=== PATIENT | female | born 1970 | race Caucasian/White ===

== ENCOUNTER 2018-10-22 15:57 | Emergency (ER) | payer MEDICARE, OTHER ==
[~2018-10-22] VITALS: Ht 170.2 cm; Wt 108.9 kg
[2018-10-22 16:18] VITALS: BP 154/111
[2018-10-22] MEDS: HYDROcodone/APAP 5/325MG 1 TAB TABLET PO ONE (16:44)
--- NOTE | 2018-10-22 17:25 | PHYS DOC ---
Past Medical History Past Medical History: Diabetes-Type II, Hypertension Past Surgical History: Cholecystectomy, Alcohol Use: None Drug Use: None Adult General Chief Complaint Chief Complaint: KNEE INJURY HPI HPI Patient is a 48 year old female who presents to the ER with complaints of R knee pain. She states that 3 weeks ago she twisted her knee when she fell down some steps. She was seen at [facility] in the ER and told her x-ray was normal. She was supposed to follow up with her PCP but has been unable to schedule an appointment because she owes them money. Pt reports continued swelling and pain of the R knee. Pt states that the pain increases when she bears weight or moves the knee. She feels like her knee is going to give out. Pt states she is out of the pain medication that was prescribed. Review of Systems Review of Systems Constitutional: Denies fever or chills [] Musculoskeletal: Denies back pain, see HPI Integument: Denies rash or skin lesions [] Neurologic: Denies headache, focal weakness or sensory changes [] All other systems were reviewed and found to be within normal limits, except as documented in this note. Current Medications Current Medications Current Medications Medications (Trade) Dose Ordered Sig/Elida Start Time Stop Time Status Last Admin Dose Admin Acetaminophen/ Hydrocodone Bitart (Lortab 5/325) 1 tab 1X ONCE 10/22/18 16:45 10/22/18 16:46 DC 10/22/18 16:44 1 TAB Allergies Allergies Allergies Coded Allergies Type Severity Reaction Last Updated Verified No Known Drug Allergies 10/22/18 No Physical Exam Physical Exam Constitutional: Well developed, well nourished, no acute distress, non-toxic appearance, obese. [] HENT: Normocephalic, atraumatic, bilateral external ears normal, nose normal. [ ] Eyes: conjunctiva normal, no discharge. [] Neck: Normal range of motion Extremities: No cyanosis, no clubbing; R medial knee tenderness to palpation, 1 + edema of R anterior knee, no deformity, negative anterior/posterior drawer testing of R knee, limited ROM of R knee due to pain intolerance Neurologic: Alert and oriented X 3, normal motor function, normal sensory function, no focal deficits noted. [] Psychologic: Affect normal, judgement normal, mood normal. [] Current Patient Data Vital Signs Vital Signs Date Time Temp Pulse Resp B/P (MAP) Pulse Ox O2 Delivery O2 Flow Rate FiO2 10/22/18 16:18 97.4 100 16 154/111 (125) 96 Room Air 97.4 EKG EKG [] Radiology/Procedures Radiology/Procedures PROCEDURE: KNEE RIGHT 3V Indication:ER PATIENT. FALL X3 WEKKS. RIGHT KNEE PAIN. DIFFICULTY FLEXING KNEE. NO PRIORS TECHNIQUE: 3 views of the right knee COMPARISON:None FINDINGS/ impression: No acute fracture or dislocation. Moderate medial joint compartment arthritis. Mild lateral and patellofemoral joint compartment arthritis. Small suprapatellar effusion.[] Course & Med Decision Making Course & Med Decision Making Pertinent Labs and Imaging studies reviewed. (See chart for details) dx: R knee pain, R knee strain Xray was negative for acute fx or dislocation. Pt was prescribed 12 hydrocodone , placed in a knee immobilizer and given crutches. Follow up with Dr. Lemos for further evaluation, return to ER if sx worsen. Patient verbalized an understanding of home care, medications, follow-up, and return to ED instructions and was in agreement with the plan of care. [] Dragon Disclaimer Dragon Disclaimer This electronic medical record was generated, in whole or in part, using a voice recognition dictation system. Departure Departure Impression: Primary Impression: Right knee pain Additional Impression: Strain of right knee Disposition: 01 HOME, SELF-CARE Condition: STABLE Referrals: UNKNOWN PCP NAME (PCP) FELECIA LEMOS II, MD Patient Instructions: Knee Pain, [id number] Additional Instructions: Fill prescription(s) and use as directed. Recommend application of ice, elevation, and rest of affected extremity. Wear the splint that was placed and use crutches until follow up appointment. Return to the ER if your symptoms worsen. Scripts Hydrocodone Bit/Acetaminophen (HYDROCODONE-APAP 5-325 ) 1 Each Tablet 1 TAB PO PRN Q6HRS PRN for PAIN for 3 Days, #12 TAB 0 Refills Prov: BERHANE MARIEE WELFARE INVESTIGATOR 10/22/18 Problem Qualifiers Primary Impression: Right knee pain Chronicity: acute Qualified Codes: M25.561 - Pain in right knee Additional Impression: Strain of right knee Encounter type: initial encounter Qualified Codes: S86.911A - Strain of unspecified muscle(s) and tendon(s) at lower leg level, right leg, initial encounter BERHANE MARIEE APRN Oct 22, 2018 17:24
[2018-10-22] MEDS ORDERED: HYDR-2761 PO (19:28)
--- NOTE | 2018-10-22 20:26 | RAD ---
Indication:ER PATIENT. FALL X3 WEKKS. RIGHT KNEE PAIN. DIFFICULTY FLEXING KNEE. NO PRIORS TECHNIQUE: 3 views of the right knee COMPARISON:None FINDINGS/ impression: No acute fracture or dislocation. Moderate medial joint compartment arthritis. Mild lateral and patellofemoral joint compartment arthritis. Small suprapatellar effusion. Electronically signed by: Denzel Lakhani DO (10/22/2018 8:22 PM) [facility]
== END 2018-10-22 19:34 | disposition home or self-care (01) ==
LOC: ER 15:57
DX: S86.911A Strain of unspecified muscle(s) and tendon(s) at lower leg level, right leg, initial encounter (principal); I10 Essential (primary) hypertension; E11.9 Type 2 diabetes mellitus without complications; Z90.49 Acquired absence of other specified parts of digestive tract; W10.8XXA Fall (on) (from) other stairs and steps, initial encounter; Y93.89 Activity, other specified; Y92.89 Other specified places as the place of occurrence of the external cause; Y99.8 Other external cause status
CPT/HCPCS: 29505; 73562; 99283-25